=== PATIENT | female | born 1935 | race Caucasian/White ===

== ENCOUNTER 2016-11-19 17:22 | Observation (INO) | payer MEDICARE, BC ==
--- NOTE | ~2016-11-19 | CN ---
Consultation Report [facility] [address] [place]. [address] NAME: CAMILLE RANDHAWA : 35 STATUS : ADM Donte PAT#: [id number] AGE: 81 ADM/REG DATE : 11/19/16 MR#: [id number] REPORT SERV DATE: 11/20/16 DICTATED BY: ADONIS MEYER DATE: 11/19/16 REPORT STATUS : Draft TRANSCRIBED BY: MODL DATE: 11/19/16 CARDIOLOGY CONSULTATION DATE OF CONSULTATION: REASON FOR CONSULTATION: Abnormal EKG and borderline troponin. HISTORY OF PRESENT ILLNESS: Ms Randhawa is an 81-year-old woman with a history of hypertension, TIA, and hypercholesterolemia. She reportedly was doing fairly well and on Thursday began to have a feeling that her heart rate was elevated. She checked her blood pressure, which she does on a regular basis, and said that her heart rate was in the 115 to 130 ranges. It has never been like that before. She had no associated chest pain or tightness, but called her primary care physician, who had her come into the office today. He did an EKG and noticed a new inferolateral ST-segment depression. Troponin was borderline elevated at 0.8. She currently feels well. She has no chest pain. She has no tightness. She has no dyspnea and has had no exertional symptoms. She never had previous episodes of elevated heart rate before. REVIEW OF SYSTEMS: As per the history of present illness. 10 other systems are negative. PAST MEDICAL HISTORY: 1. Hypertension. 2. TIA. 3. Hypercholesterolemia. 4. Carotid disease. FAMILY HISTORY: Positive for coronary disease. SOCIAL HISTORY: No tobacco. ALLERGIES: NO KNOWN DRUG ALLERGIES. HOME MEDICATIONS: Lipitor 20 daily, B complex vitamin, losartan 50 daily, Toprol-XL 100 daily. PHYSICAL EXAMINATION: VITAL SIGNS: Heart rate 77, blood pressure 132/66. GENERAL: The patient is a pleasant, elderly white female. No apparent distress. HEENT: Conjunctivae are anicteric, no xanthelasma, lips without cyanosis. NECK: Supple, normal JVP, carotids +2 without bruit. LUNGS: Clear to auscultation bilaterally, no wheezes, rales or rhonchi. CARDIOVASCULAR: Regular rate and rhythm. Normal S1 and S2 without S3. No murmur or rub. PMI is nondisplaced. Consultation Report [facility] [address] [place]. [address] NAME: CAMILLE RANDHAWA : 35 STATUS : ADM Donte PAT#: [id number] AGE: 81 ADM/REG DATE : 11/19/16 MR#: [id number] REPORT SERV DATE: 11/20/16 DICTATED BY: ADONIS MEYER DATE: 11/19/16 REPORT STATUS : Draft TRANSCRIBED BY: CIERA DATE: 11/19/16 ABDOMEN: Soft, nontender, nondistended, with normal bowel sounds. No hepatomegaly. EXTREMITIES: No clubbing, cyanosis or edema. NEURO/PSYCH: Alert and oriented to person, place and time. No obvious neurologic deficits. Mood and affect normal. DATA: Electrocardiogram shows sinus rhythm with nonspecific inferolateral ST-segment depression. LABS: Significant for borderline troponin is 0.08. Creatinine is 0.97. IMPRESSION: 1. Tachy arrhythmia, based on history. 2. EKG changes, mild. 3. Borderline troponin. 4. Hypertension and hypercholesterolemia. 5. History of transient ischemic attack. RECOMMENDATIONS: Ms Randhawa had an elevated heart rate at home. I believe this is what started her episode. This led her to go to see Dr. Henriquez, who noticed some EKG changes and now she is in the hospital. Troponin is borderline elevated, and she does have some ST- segment changes. I think this may have been all generated out of a tachy arrhythmia, based on her history, but she has significant coronary risk factors, but no anginal symptoms. I have recommended an echo and a stress test for evaluation as well as serial troponins to make sure they are not climbing. If the troponins are the similar or only minimally elevated, I would go ahead and do an echo and a stress test first and continue her on an aspirin a day which she should have been on otherwise and check a TSH. If all of that is unrevealing, I will probably do an outpatient Holter to screen for intermittent arrhythmia. She certainly could have atrial fibrillation. If her stress test is abnormal, we may need to consider arteriography. Thank you for this consultation. Please contact me if you have any further questions. MAINE/CIERA Adonis Meyer M.D., Ph.D, F.A.C.C. / [id number] CC: Leelee Deleon M.D.
--- NOTE | ~2016-11-19 | DS ---
Discharge Summary [facility] [address] [place]. [address] NAME: CAMILLE RANDHAWA : 35 STATUS : DIS Donte PAT#: [id number] AGE: 81 ADM/REG DATE : 11/19/16 MR#: [id number] REPORT SERV DATE: 11/22/16 DICTATED BY: RANJEET BRIONES DATE: 11/21/16 REPORT STATUS : Draft TRANSCRIBED BY: MODL DATE: 11/21/16 ADMISSION DATE: 11/19/2016 DISCHARGE DATE: 11/20/2016 DISCHARGE DIAGNOSES: Include: 1. Accelerated hypertension. 2. Tachyarrhythmia. 3. Borderline positive troponin peaked at 0.08. 4. EKG changes with slight ST wave depression. 5. Elevated TSH 4.370, subclinical hypothyroidism starting Synthroid therapy. DISCHARGE MEDICATIONS: Aspirin 81 mg daily, Lipitor 20 mg at bedtime, Cozaar 100 mg daily, Toprol-XL 100 mg daily, vitamin B complex tab daily, and Synthroid 25 mcg p.o. daily. HISTORY OF PRESENT ILLNESS: This is a very pleasant 81-year-old white female, who originally presented to [facility] Emergency Room with diaphoresis and elevated blood pressure. Please see the initial H and P of Dr. Giovanny Santana. This patient was admitted under observation to the Hospitalist Service for further evaluation and treatment. CONSULTANTS DURING THIS ADMISSION: Include Cardiology Dr. Adonis Mcclendon. PROCEDURES AND IMAGING DURING THIS ADMISSION: Include a MPI stress test that was overall low risk and an echocardiogram showing an ejection fraction of 55% to 60% with mild diastolic dysfunction, mild aortic regurg, and mild mitral regurg. CONTINUATION OF HOSPITAL COURSE: The patient was followed serial lab work for troponins. EKG was followed, and the above-described testing and imaging were done. Her symptoms began to improve, and she was able to tolerate the above-described testing well. She was found to have an elevation in her TSH on lab work. After discussion with the patient, decision was made to start her on very low-dose Synthroid with education to recheck her TSH in four to six weeks. Given the fact that she was symptomatically improved, low risk stress test, her heparin was discontinued, and Cardiology agreed with her discharge home to follow up with them in three weeks. I did make an adjustments to her losartan increasing the dosage, and I have instructed her to follow up with her primary care, Dr. Henriquez in 4 weeks as well to discuss her blood pressure and for recheck of her TSH. The patient was in agreement with this plan going forward. Questions were answered at bedside. I appreciate the Cardiology's help in this case. MARJ/CIERA Ranjeet Briones NP / [id number] Discharge Summary [address] [address] NAME: CAMILLE RANDHAWA : 35 STATUS : DIS Donte PAT#: [id number] AGE: 81 ADM/REG DATE : 11/19/16 MR#: [id number] REPORT SERV DATE: 11/22/16 DICTATED BY: RANJEET BRIONES SCOT DATE: 11/21/16 REPORT STATUS : Draft TRANSCRIBED BY: CIERA DATE: 11/21/16 CC: Leelee Luis M.D.
--- NOTE | ~2016-11-19 | HP ---
History And Physical [place] [id number] [place]. [address] NAME: CAMILLE RANDHAWA : 35 STATUS : ADM Donet PAT#: [id number] AGE: 81 ADM/REG DATE : 11/19/16 MR#: [id number] REPORT SERV DATE: 11/20/16 DICTATED BY: SANJU SEN DATE: 11/19/16 REPORT STATUS : Draft TRANSCRIBED BY: MODMiley DATE: 11/19/16 DATE OF ADMISSION: 11/19/2016 CHIEF COMPLAINT: Sweats with blood pressure elevation palpitations starting 2 days ago. Sent from Dr. Castellano clinic for elevated blood pressure and abnormal EKG changes for cardiology evaluation. HISTORY OF PRESENT ILLNESS: The patient is a very pleasant 81-year-old female, fairly functional independent, who presents from clinic after having most recently 2 days of elevated blood pressure with sweats and palpitations intermittently symptoms have been moderate in severity. No chest pain or pressure symptoms or radiating symptoms. No nausea, vomiting, shortness of breath. No fevers, but did have sweats episode 2 days ago, since then went to Dr. Castellano clinic for evaluation noted to have high blood pressure, although she does have history of white coat syndrome. Her blood pressure remained elevated and the patient did have some nonspecific EKG changes with depressions requested evaluation and cardiology evaluation in the emergency room. There were no worsening or relieving symptoms are appreciated. Blood pressure did not improve with nitroglycerin, but did improve with hydralazine as given in emergency room. Symptoms are still elevated blood pressure, but not resolving. REVIEW OF SYSTEMS: A 10-point review of systems negative except that noted in the HPI. PAST MEDICAL HISTORY: Noted for cataracts, diverticulosis, hyperlipidemia, TIA, history of hypertension, vitamin D, white coat hypertension, and carotid atherosclerosis grade 1. SURGICAL HISTORY: Cataract and blepharoplasty. FAMILY HISTORY: Coronary artery disease in mother, sister, and brother. SOCIAL HISTORY: No alcohol or illicits. . Retired from insurance company. No illegal drugs. Accompanied with sister and other additional family members. EKG, although unchanged from this morning. Rate of 84, QTc 451. T-wave inversions in V1 V2 with mild ST depression changes at V4, V5, V6. ALLERGIES: NO KNOWN DRUG ALLERGIES. HOME MEDICATIONS: Atorvastatin, B complex, losartan, and metoprolol. PHYSICAL EXAMINATION: VITAL SIGNS: Initial blood pressure 199/90, improved to 160/80, temperature 97.5, pulse 84, respirations O2 saturation 97%. GENERAL: No acute distress. Calm, pleasant, well developed, well nourished, well groomed. EYES: No scleral icterus. EOMI. ENT: Nares patent. Tongue midline. Moist mucous membranes. RESPIRATORY: Clear to auscultation. No wheezes, rales, or rhonchi. History And Physical [address] [place]. [address] NAME: CAMILLE RANDHAWA : 35 STATUS : ADM Donte PAT#: [id number] AGE: 81 ADM/REG DATE : 11/19/16 MR#: [id number] REPORT SERV DATE: 11/20/16 DICTATED BY: SANJU SEN DATE: 11/19/16 REPORT STATUS : Draft TRANSCRIBED BY: MODMiley DATE: 11/19/16 CHEST: Equal chest expansion. CV: Although, hypertensive regular rate, no rubs or gallops. A 1:1 beat pulse ratio. No pedal edema. GI: Soft, nontender, nondistended. Bowel sounds positive. : Deferred. MUSCULOSKELETAL: Moves all extremities x4. Symmetrical strength upper and lower extremities. SKIN: Warm and dry with chronic venous stasis changes in lower extremities. LYMPH: No cervical, supraclavicular lymphadenopathy. HEME: No bleeding or bruising. NEURO: Alert and oriented. Moves all extremities x4. Strength symmetrical. Sensation is grossly intact. Gait untested at this time. No symptomatic orthostasis. PSYCH: Appropriate mood and affect. LABORATORY DATA: CBC grossly within normal limits. INR 1. BMP also grossly within normal limits with potassium 3.6, BUN and creatinine 21 and 0.97. Mildly elevated BUN. Sodium 142, magnesium 2.3. Troponin 0.08, and calcium 9.1. Chest, PA lateral no acute cardiopulmonary abnormality. ASSESSMENT: 1. Accelerated hypertension. 2. ST wave depression changes on EKG. 3. Mild troponin elevation in the presence of palpitations and intermittent diaphoresis episodes. 4. Hyperlipidemia. 5. Mild azotemia. 6. Tachycardia/palpitation history. PLAN: 1. Plan for accelerated hypertension does have white coat syndrome. She is on ARB and beta-donna. Hydralazine given. We will start hydralazine p.r.n. blood pressure appears more controlled and no chest pain currently. 2. ST wave depression no prior cardiac history, but does have significant family history in the presence of accelerated hypertension mild blood pressure troponin elevation. ST wave depressions. Heparin drip started in the emergency room. She is requesting Cardiology evaluation per reports and family requesting Dr. Harrell will have Cardiology evaluation, serial troponins, EKG, echocardiogram currently no chest pain at this time or during these episodes. 3. Mild troponin elevation. Serial monitoring heparin drip. 4. Hyperlipidemia statin. 5. Mild azotemia monitor currently euvolemic and still good p.o. intake. 6. Tachycardia resolved and appears to be intermittent with accelerated blood pressure. We will monitor on telemetry. No dysrhythmias appreciated currently. All questions were answered to the patient family at bedside. DISPOSITION: Pending findings from above. History And Physical [address] [address] NAME: CAMILLE RANDHAWA : 35 STATUS : ADM Donte PAT#: [id number] AGE: 81 ADM/REG DATE : 11/19/16 MR#: [id number] REPORT SERV DATE: 11/20/16 DICTATED BY: SANJU SEN DATE: 11/19/16 REPORT STATUS : Draft TRANSCRIBED BY: CIERA DATE: 11/19/16 DDVirginia/CIERA Sanju Sen MD / [id number] CC: Leelee Deleon M.D.
[2016-11-19 15:33] LABS: BASOPHILS 0.2 %; BASOPHILS ABSOLUTE 0.01 10/3/uL (0.0-0.16); EOSINOPHILS 0.8 %; EOSINOPHILS ABSOLUTE 0.04 10/3/uL (0.0-0.53); HEMATOCRIT 42.2 % (36.0-48.0); IMMATURE GRANULOCYTES 0.2 %; IMMATURE GRANULOCYTES ABSOLUTE 0.01 10/3/uL (0.0-0.11); LYMPHOCYTES 24.3 %; LYMPHOCYTES ABSOLUTE 1.25 10/3/uL (0.67-4.30); MANUAL DIFF NO %; MEAN CORPUS HGB CONC 33.2 g/dL (32.0-36.0); MEAN CORPUSCULAR HEMOGLOB 31.7 pg (26.0-34.0); MEAN CORPUSCULAR VOLUME 95.7 fL (80-100); MEAN PLATELET VOLUME 9.4 fL (9.2-13.0); MONOCYTES 6.8 %; MONOCYTES ABSOLUTE 0.35 10/3/uL (0.21-1.20); NEUTROPHILS 67.7 %; NEUTROPHILS ABSOLUTE 3.48 10/3/uL (2.02-8.40); PLATELET COUNT 224 10/3/uL (150-400); RBC DISTRIBUTION WIDTH 12.7 % (12.0-16.0); RED CELL COUNT 4.41 10/6/uL (4.0-5.6); WHITE BLOOD CELLS 5.1 10/3/uL (4.5-10.5)
[2016-11-19 15:37] LABS: PROTIME (NOT ORD) 13.4 SEC (12.0-14.5)
[2016-11-19 15:38] LABS: PARTIAL THROMBO TIME 33.2 SEC (22.5-37.2)
[2016-11-19 15:47] LABS: BUN (BLOOD UREA NITROGEN) 21 MG/DL (6-23); CALCIUM, SERUM 9.1 MG/DL (8.5-10.4); CHLORIDE, SERUM 103 MMOL/L (96-112); CO2 (CARBON DIOXIDE) 30 MMOL/L (24-34); CREATININE 0.97 MG/DL (0.55-1.02); GFR AFRICAN AMERICAN 63 ML/MIN (>=60); GFR NON AFRICAN AMERICAN 55 ML/MIN (>=60); GLUCOSE, SERUM 98 MG/DL (60-99); POTASSIUM, SERUM 3.6 MMOL/L (3.5-5.3); SODIUM, SERUM 142 MMOL/L (135-148)
[2016-11-19 15:48] LABS: CHEST PAIN PROFILE TAT 0 Hrs 21 Mins; TROPONIN I 0.08 NG/ML (<0.05)
[~2016-11-19 17:22] MED LIST: ASA5GR PO; BALANCED B PO; CLARIT10 PO; COZ50 PO; COZAAR100 MG PO; LIPITOR; LIPITOR20 PO; LOSARTAN; MULTIVIT/MIN PO; TOPXL100 PO
[2016-11-20 05:38] LABS: BASOPHILS 0.4 %; BASOPHILS ABSOLUTE 0.02 10/3/uL (0.0-0.16); EOSINOPHILS 1.4 %; EOSINOPHILS ABSOLUTE 0.08 10/3/uL (0.0-0.53); HEMATOCRIT 39.1 % (36.0-48.0); HEMOGLOBIN 12.6 g/dL (12.0-16.0); LYMPHOCYTES 26.6 %; LYMPHOCYTES ABSOLUTE 1.48 10/3/uL (0.67-4.30); MEAN CORPUS HGB CONC 32.2 g/dL (32.0-36.0); MEAN CORPUSCULAR HEMOGLOB 29.9 pg (26.0-34.0); MEAN CORPUSCULAR VOLUME 92.9 fL (80-100); MEAN PLATELET VOLUME 9.5 fL (9.2-13.0); MONOCYTES 9.9 %; MONOCYTES ABSOLUTE 0.55 10/3/uL (0.21-1.20); NEUTROPHILS 61.7 %; NEUTROPHILS ABSOLUTE 3.44 10/3/uL (2.02-8.40); PLATELET COUNT 217 10/3/uL (150-400); RED CELL COUNT 4.21 10/6/uL (4.0-5.6); WHITE BLOOD CELLS 5.6 10/3/uL (4.5-10.5)
[2016-11-20 05:42] LABS: MANUAL DIFF NO %
[2016-11-20 06:16] LABS: BUN (BLOOD UREA NITROGEN) 21 MG/DL (6-23); CALCIUM, SERUM 8.7 MG/DL (8.5-10.4); CHLORIDE, SERUM 109 MMOL/L (96-112); CO2 (CARBON DIOXIDE) 26 MMOL/L (24-34); CREATININE 0.75 MG/DL (0.55-1.02); GFR AFRICAN AMERICAN 87 ML/MIN (>=60); GFR NON AFRICAN AMERICAN 75 ML/MIN (>=60); GLUCOSE, SERUM 92 MG/DL (60-99); POTASSIUM, SERUM 3.2 MMOL/L (3.5-5.3); SODIUM, SERUM 144 MMOL/L (135-148); TROPONIN I 0.07 NG/ML (<0.05)
[2016-11-20] MEDS ORDERED: SYN.025B PO (17:00)
== END 2016-11-20 18:11 | disposition home or self-care (01) ==
LOC: ER 17:22 → 5NO 18:59
PROVIDERS: Emergency Medicine; Student in an Organized Health Care Education/Training Program
DX: I10 Essential (primary) hypertension (principal); R00.0 Tachycardia, unspecified; E78.5 Hyperlipidemia, unspecified; E78.00 Pure hypercholesterolemia, unspecified; M19.90 Unspecified osteoarthritis, unspecified site; R79.89 Other specified abnormal findings of blood chemistry; Z86.73 Personal history of transient ischemic attack (TIA), and cerebral infarction without residual deficits; Z79.52 Long term (current) use of systemic steroids; Z98.890 Other specified postprocedural states; Z82.49 Family history of ischemic heart disease and other diseases of the circulatory system; Z88.8 Allergy status to other drugs, medicaments and biological substances; Z79.82 Long term (current) use of aspirin
CPT/HCPCS: 71020; 78452; 80048; 83735; 83880; 84132; 84443; 84484; 85025; 85610; 85730; 93005; 93017; 93306; 96374; 96376; 99285; A9270-GY; A9502; G0378; J0360